=== PATIENT | male | born 1945 | race Hispanic/Latino ===

== ENCOUNTER 2020-10-05 05:52 | Day surgery (SDC) | payer MEDICARE ==
[2020-10-03 11:54] LABS: BASOPHILS % (AUTO) 0.2 % (0.0-5.0); EOSINOPHILS % (AUTO) 3.7 % (0.0-8.0); HEMATOCRIT 35.8 % (42-54); LYMPHOCYTES % (AUTO) 33.3 % (21.0-51.0); MEAN CORPUSCULAR HEMOGLOBIN 29.8 pg (27.0-33.0); MEAN CORPUSCULAR HGB CONC 31.8 g/dL (32.0-36.0); MEAN CORPUSCULAR VOLUME 93.5 fL (79-99); MONOCYTES % (AUTO) 9.9 % (3.0-13.0); NEUTROPHILS % (AUTO) 52.4 % (40.0-77.0); PLATELET COUNT (AUTO) 154 K/uL (130-400); RED BLOOD CELL COUNT(AUTO) 3.83 MIL/uL (4.50-6.20); RED CELL DISTRIBUTION WIDTH 13.6 % (11.0-15.5); WHITE BLOOD COUNT (AUTO) 4.4 K/uL (4.8-10.8)
[2020-10-03 12:06] LABS: INR 1.1 (0.85-1.15); PROTHROMBIN TIME 11.9 SEC (9.6-11.6)
[2020-10-03 12:07] LABS: PARTIAL THROMBOPLASTIN TIME 29.7 SEC (26.3-35.5)
[2020-10-03 12:10] LABS: CREATININE 1.1 mg/dL (0.5-1.5); POTASSIUM 4.3 mmol/L (3.5-5.1)
[2020-10-04 11:31] VITALS: BP 149/58
[2020-10-05] VITALS (8 sets, daily range): BP systolic 133–146; BP diastolic 52–66
[~2020-10-05] VITALS: Ht 170.2 cm; Wt 74.2 kg
[~2020-10-05 05:52] MED LIST: ASPI-1197 PO; CARB200T5 PO; EZET10TA48 PO; FENO145T26 PO; LISI-809 PO; OMEP40CA21 PO; PREG75CA75 PO; ROSU20TA31 PO
[2020-10-05] MEDS ORDERED: 0.9%NACL 1000ML 1,000 ML IV ONE (06:18)
[2020-10-05] MEDS ORDERED: MEPERIDINE-PF 25 MG/ML SYG ONE ×2 (07:36→08:18)
[2020-10-05] MEDS ORDERED: MIDAZOLAM HCL 1 MG/ML 2ML VIAL ONE ×2 (07:36→08:18)
[2020-10-05] MEDS ORDERED: BUPIVACAINE/PF 0.25% 30ML VIAL IJ ONE (07:36)
[2020-10-05] MEDS ORDERED: CEFAZOLIN SODIUM 1 GM VIAL ONE (07:36)
[2020-10-05] MEDS ORDERED: IOHEXOL-350 50ML VIAL IV ONE (07:36)
[2020-10-05] MEDS ORDERED: LIDOCAINE HCL 1% MDV 50ML VIAL ONE (07:37)
[2020-10-05] MEDS ORDERED: TRAM50TA4 PO (09:06)
[2020-10-05] MEDS ORDERED: APAP-CODEINE 300/30MG TAB PO PRN (09:15)
== END 2020-10-05 13:30 | disposition home or self-care (01) ==
LOC: DAH 05:52
PROVIDERS: ATTEND Internal Medicine Cardiovascular Disease
DX: I49.5 Sick sinus syndrome (principal); Z20.822 Contact with and (suspected) exposure to COVID-19; E78.5 Hyperlipidemia, unspecified; N18.9 Chronic kidney disease, unspecified; I45.10 Unspecified right bundle-branch block; Z95.1 Presence of aortocoronary bypass graft; Z90.49 Acquired absence of other specified parts of digestive tract; Z79.82 Long term (current) use of aspirin; Z79.01 Long term (current) use of anticoagulants
CPT/HCPCS: 33208; 36415; 71045; 80048; 85025; 85610; 85730; 93005; A4215; A4216; A4221; A4222; A4223 ×3; A4606; A4663; A6258; A6402; C1785; C1898 ×2; J0690; J2175 ×2; J2250 ×2; J3490 ×2; J7030; 99156; 99157; Q9967

== ENCOUNTER → 2022-02-02 | Outpatient (CLI) | payer MEDICARE ==
[~2022-02-02] MED LIST changes: -LISI-809 PO; +LISI5TAB21 PO; +REGADENOSON 0.4 MG/5 ML PF SYG IVP SCH; +TRAM50TA4 PO
== END | disposition home or self-care (01) ==
LOC: SHCH 08:03
PROVIDERS: ATTEND Internal Medicine Cardiovascular Disease
DX: I45.10 Unspecified right bundle-branch block (principal); I25.810 Atherosclerosis of coronary artery bypass graft(s) without angina pectoris; R06.00 Dyspnea, unspecified
CPT/HCPCS: 78452; 96374; 93017; J2785; A9500 ×2